=== PATIENT | female | born 1930 | race Caucasian/White ===

== ENCOUNTER 2018-09-28 12:32 | Inpatient (IN) | payer MEDICARE ==
--- NOTE | 2018-09-28 13:10 | CT ---
CT BRAIN NONCONTRAST: DATE: 09/28/2018 HISTORY: 88-year-old female with altered mental status FINDINGS: There is no evidence of acute intra-axial or extra-axial hemorrhage. There is no midline shift or any other mass effect. There is no extra-axial fluid collection. There is no evidence of obstructive hydrocephalus. Calvarium is intact. There is diffuse brain parenchymal volume loss. There are low att enuation areas in the white matter. These are nonspecific, but in a patient of this age, they are probably chronic ischemic white matter changes due to microvascular atherosclerosis. IMPRESSION: 1) No acute intracranial findings. 2) involutional changes and chronic ischemic white matter changes.
--- NOTE | 2018-09-28 13:11 | RAD ---
RADIOGRAPH CHEST 1 VIEW: DATE: 09/28/2018 HISTORY: 88-year-old female with altered mental status Dr. Fisher notified Dr. Fuller of the emergency Department of the finding and recommendation. FINDINGS: There are no airspace densities, pulmonary edema, pneumothorax, or cardiomegaly. The lateral costophr enic angles are sharp. There is a moderate sized left hilar or perihilar opacity with irregular margins, representing a change compared to prior studies. IMPRESSION: 1. Left hilar or perihilar mass suspicious for lung cancer. Recommend further evaluation with CT of t he chest (preferably with IV contrast unless contraindicated). 2. No acute cardiopulmonary findings.
[2018-09-28 13:29] LABS: #Eosinphils 0.2 thou/uL (0.0-0.7); #Lymphocytes 1.2 thou/uL (1.20-3.40); #Monocytes 0.3 thou/uL (0.11-0.59); #Neutrophils 7.5 thou/uL (1.40-6.50); %Basophils 0.4 % (0.0-1.0); %Lymphocytes 12.6 % (21.0-51.0); %Monocytes 3.7 % (0.0-10.0); %Neutrophils 81.3 % (42.0-75.0); Hemoglobin 15.2 g/dL (12.0-16.0); Mean Corpuscular HGB CONC 31.9 g/dL (32.0-36.0); Mean Corpuscular Hemoglobin 35.8 pg (27.0-31.0); Mean Platelet Volume 7.6 fL (7.4-10.4); Platelet Count 357 thou/uL (130-400); RBC Distribution Width 13.9 % (11.5-14.5); Red Blood Cell (RBC) Count 4.25 mill/uL (4.20-5.40); White Blood Cell (WBC) Count 9.2 thou/uL (4.8-10.8)
[2018-09-28 13:33] LABS: Prothrombin Time 13.5 SEC (12.0-14.7)
[2018-09-28 13:46] LABS: Hypochromia SLIGHT = 6-15 cells (100X) (0-5/hpf); MDiff Complete? YES; Macrocytosis MODERATE=16-30 cells (100X) (0-5/hpf); Platelet Morphology Comment Appears Adequate; Polychromasia SLIGHT = 2-3 cells (100X) (0-2/hpf)
[2018-09-28 14:08] LABS: ALT (SGPT) 8 U/L (8-55); AST (SGOT) 13 U/L (5-34); Albumin 4.1 g/dL (3.4-4.8); Alcohol Less than 10 mg/dL (Less than 10); Alkaline Phosphatase 75 U/L (40-150); Anion Gap 12 mmol/L (10-20); BUN (Urea Nitrogen) 20 mg/dL (9.8-20.1); Bilirubin, Total 0.4 mg/dL (0.2-1.2); Calc. Creatinine Clearance 0 mL/min (70-130); Calcium 9.7 mg/dL (7.8-10.44); Carbon Dioxide 27 mmol/L (23-31); Chloride 102 mmol/L (98-107); Estimated GFR-MDRD 69; Globulin 2.7 g/dL (2.4-3.5); Glucose 169 mg/dL (83-110); Potassium 4.4 mmol/L (3.5-5.1); Protein, Total 6.8 g/dL (6.0-8.3); Salicylate Less than 8.0 mg/dL (15.0-30.0); Sodium 137 mmol/L (136-145)
[2018-09-28 14:44] LABS: Bilirubin Negative (Negative); Blood, Urine Negative (Negative); Clarity CLEAR (Clear); Glucose, Urine (Dipstick) Negative (Negative); Leukocyte Negative (Negative); Nitrite Negative (Negative); Protein, Urine (Dipstick) Negative (Neg-Trace); Specific Gravity, Urine 1.013 (1.002-1.036); Urobilinogen 0.2 mg/dL (0.2-1.0); pH, Urine 5.5 (5.0-9.0)
[2018-09-28 14:54] LABS: Amphetamine Not Detected (NotDetected); Barbiturates Screen Not Detected (NotDetected); Benzodiazepine Screen Detected (NotDetected); Cocaine Metabolite Screen Not Detected (NotDetected); Medtox Control Line Valid? VALID (VALID); Medtox Reader # READER 4; Methadone Not Detected (NotDetected); Methamphetamine Not Detected (NotDetected); Opiate Screen Not Detected (NotDetected); Oxycodone Screen Not Detected (NotDetected); Phencyclidine (PCP) Not Detected (NotDetected); THC/Cannabinoid Screen Not Detected (NotDetected); Tricyclic Screen Not Detected (NotDetected)
[2018-09-28 15:27] LABS: Actual Bicarbonate (HCO3a) 27.1 mEq/L (22-28); Analyzer IN Cardio ER; Base Excess (BEa) 2.2 mEq/L (-2.0 to +3.0); CO2 Tension 43.1 mmHg (35.0-45.0); Calcium, Ionized 1.22 mmol/L (1.12-1.30); Carboxyhemoglobin (COHb) 3.3 gm% (0.0-3.0); Hemoglobin (Hb) 16.4 g/dL (12.0-16.0); O2 Tension (PaO2) 66.8 mmHg (> 60.0); pH, Arterial 7.42 (7.35-7.45)
[2018-09-28 15:28] LABS: ALV-art Gradient 29.055 (0-20); Puncture Site RRA
--- NOTE | 2018-09-28 15:52 | CT ---
CT CHEST WITHOUT CONTRAST: Multiple axial tomograms are obtained through the chest without IV enhancement. INDICATION: Abnormal chest x-ray. Chest x-ray described a left perihilar mass lesion. FINDINGS: Chest CT does confirm a mass in the posterior left mid lung which is pleural-based. This mass measur es 4.8 cm maximum dimension in the coronal plane. It abuts the descending aorta and also abuts the p osterior hilar region. There are chronic lung parenchymal changes. There is cardiomegaly and mild vascular congestion. The re is early honeycombing in both posterior lung bases. No effusion. Nonspecific mediastinal lymph n odes. Images through the upper abdomen show evidence of splenomegaly. Degenerative changes in the spine. IMPRESSION: 1. Mass posterior left lung which his pleural-based and abuts the descending aorta and posterior hil ar structures. 2. Chronic lung parenchymal changes as described. 3. Splenomegaly. POS: OFF
[2018-09-28] MEDS ORDERED: Ondansetron PF 4 MG/2 ML Vial IVP PRN (19:38)
[2018-09-28] MEDS ORDERED: Acetaminophen 325 MG TAB PO PRN (19:38)
[2018-09-28] MEDS ORDERED: Ondansetron ODT 4 MG TAB SL PRN (19:38)
[2018-09-28] MEDS ORDERED: PROVENTIL INHALER 6.7 G (200 INHALATIONS) INH PRN (22:55)
[2018-09-28] MEDS ORDERED: Dextrose 5% in Water 1,000 ML IV PRN (22:58)
[2018-09-28] MEDS ORDERED: Dextrose 50% Abboject 50 ML SYRINGE SLOW IVP PRN (22:58)
[2018-09-28] MEDS ORDERED: ALPRAZolam 0.25 MG TAB PO SCH (23:15)
[2018-09-28] MEDS ORDERED: Mirtazapine 15 MG TAB PO SCH (23:15)
[2018-09-28] MEDS: Nicotine 21 MG PATCH TD SCH (23:30)
[2018-09-29 01:22] VITALS: BMI 22.4
[2018-09-29 08:00] LABS: #Basophils 0.1 thou/uL (0.0-0.2); #Eosinphils 0.1 thou/uL (0.0-0.7); #Lymphocytes 1.4 thou/uL (1.20-3.40); #Monocytes 0.6 thou/uL (0.11-0.59); #Neutrophils 7.1 thou/uL (1.40-6.50); %Basophils 0.8 % (0.0-1.0); %Eosinophils 1.3 % (0.0-10.0); %Lymphocytes 15.1 % (21.0-51.0); %Monocytes 6.4 % (0.0-10.0); %Neutrophils 76.4 % (42.0-75.0); Hemoglobin 15.5 g/dL (12.0-16.0); Mean Corpuscular HGB CONC 32.4 g/dL (32.0-36.0); Mean Corpuscular Hemoglobin 36.1 pg (27.0-31.0); Mean Platelet Volume 7.7 fL (7.4-10.4); Platelet Count 344 thou/uL (130-400); RBC Distribution Width 13.8 % (11.5-14.5); Red Blood Cell (RBC) Count 4.29 mill/uL (4.20-5.40); White Blood Cell (WBC) Count 9.3 thou/uL (4.8-10.8)
[2018-09-29 08:21] LABS: Anion Gap 12 mmol/L (10-20); BUN (Urea Nitrogen) 20 mg/dL (9.8-20.1); Calc. Creatinine Clearance 46 mL/min (70-130); Calcium 9.9 mg/dL (7.8-10.44); Carbon Dioxide 28 mmol/L (23-31); Chloride 105 mmol/L (98-107); Estimated GFR-MDRD 77; Glucose 151 mg/dL (83-110); Sodium 141 mmol/L (136-145)
[2018-09-29] MEDS ORDERED: Non-Formulary Item 1 EACH (Insulin Detemir [Levemir] 10 UNIT) SQ SCH (09:00)
[2018-09-29] MEDS: Hydroxyurea 500 MG CAP PO SCH (09:11)
[2018-09-29] MEDS: Insulin Glargine 10 UNITS in Pre-Filled Syringe 1 EACH SC SCH (09:11)
[2018-09-29] MEDS: Aspirin 81 mg Enteric Coated Tablet PO SCH (09:11)
[2018-09-29] MEDS: Atorvastatin Calcium 20 MG TAB PO SCH (09:12)
[2018-09-29] MEDS: Atenolol 25 MG TAB PO SCH (09:13)
[2018-09-29] MEDS: Famotidine 20 MG TAB PO SCH ×2 (09:13→21:56)
--- NOTE | 2018-09-29 10:01 | HP ---
PRIMARY CARE PHYSICIAN: CHIEF COMPLAINT: Increased mechanical fall and generalized weakness. HISTORY OF PRESENT ILLNESS: Ms. 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 She states that her PCP started her on trazodone at bedtime along with increase in her daily Klonopin and since then she has noticed that she is felt quite drowsy and weak during the day, which has caused her to have several mechanical falls, she states the last one was earlier this morning where she was at home. She had fallen on the floor. She had denied hitting her head and she had literally crawled to her chair and helped herself up to the chair. She states that family and her were quite concerned with this; therefore she had wanted to be seen in and find out what the cause is. She had denied any fever, chills, any headache, blurred vision. She denied any chest pain, palpitations, shortness of breath, abdominal pain, nausea, vomiting. She denied any change with her stool. She had denied any frequent weight loss and has actually gained about 15 pounds since starting on insulin for her underlying diabetes. During her initial workup, a CT brain without contrast was unremarkable; however did show some chronic ischemic white matter changes. A portable chest x-ray showed a left hilar or perihilar mass suspicious of lung cancer and had recommended further evaluation with a CT of chest. Therefore, CTA of chest without contrast was performed due to patient declining IV contrast at that time and a mass in posterior left lung, which is pleural-based and abuts the descending aorta and posterior hilar structures. It was seen along with chronic lung parenchymal changes. The patient states she sees Dr. 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 Ag was then consulted per ED staff for her new lung mass. It was at that time, it was determined the patient be admitted under observation, Dr. Ag consulted and patient be monitored for her increased falls and her generalized weakness, PT and OT services were consulted and will likely work with patient in the morning. REVIEW OF SYSTEMS: All other systems reviewed and found to be negative unless mentioned in HPI. PAST MEDICAL HISTORY: Significant for myelofibrosis, thrombocytopenia, osteoarthritis, Guillain-[place] syndrome, hypertension and hyperlipidemia. PAST SURGICAL HISTORY: Hernia repair, left breast cyst removal, appendectomy, cholecystectomy, tonsillectomy, and hemorrhoidectomy. PSYCHIATRIC HISTORY: Includes depression and paranoia. SOCIAL HISTORY: The patient denies alcohol or any illicit drug use; however she states that she smokes about a pack to two packs of cigarettes per day and she has been smoking since she was around 15 years old. KNOWN ALLERGIES: Cephalosporins, Cipro, Declomycin, Furacin, gentamicin, Innovar, iodine, Librax, azithromycin, sulfa, Prozac, Phenergan, penicillins, Visicol, Ultracef. CURRENT HOME MEDICATIONS: 1. Clonazepam 1 mg p.o. daily and 0.5 mg p.o. at bedtime. 2. Trazodone 50 mg p.o. at bedtime. 3. Alprazolam 0.25 p.o. at bedtime. 4. Remeron 15 mg p.o. at bedtime. 5. Atenolol 25 mg p.o. daily. 6. NovoLog FlexPen 10 units subcu t.i.d. with meals. 7. Hydroxyurea 50 mg p.o. daily. 8. Atorvastatin 20 mg p.o. daily. 9. Albuterol sulfate 90 mcg one inhalation q.6 hours p.r.n. shortness of breath or wheezing. 10. Insulin Levemir 10 units subcu daily. 11. Aspirin 81 mg daily. PHYSICAL EXAMINATION: VITAL SIGNS: BP 117/57, pulse 76, respirations 16, temperature 98.4 degrees Fahrenheit, O2 saturations 95% on room air. GENERAL: The patient is awake, alert, and oriented x3. She is currently lying comfortably in bed, in no acute distress. Her daughter is at bedside. HEENT: Atraumatic, normocephalic. Pupils are round and reactive to light. Extraocular muscles intact. Moist mucous membranes noted. NECK: Soft, supple. Trachea midline. CARDIOVASCULAR: Positive S1 and S2. Regular rate and rhythm. No murmur auscultated. RESPIRATORY: Clear to auscultation bilaterally. No wheezes, rales; however, some mild diminished breath sounds at the bases. ABDOMEN: Soft, nontender. Bowel sounds present. MUSCULOSKELETAL: Strength 5+ bilaterally in upper and lower extremities. Moves all extremities equal. Pedal and radial pulses palpable 2+ bilaterally. No edema noted. NEUROLOGIC: Cranial nerves 2 through 12 grossly intact. No focal deficits noted. Speech intact and normal. Gait not assessed. The patient is slightly hard of hearing. SKIN: Warm, dry, and intact. No rashes. No ulceration noted. PSYCHIATRIC: Good mood and affect. LABORATORY DATA: WBC 9.2, RBC 4.25, hemoglobin 15.2, platelet 357. Sodium 137, potassium 4.4, bicarb 27, anion gap 12, BUN 20, creatinine 0.79, estimated GFR 69, glucose 156. Lactic acid 1.4. Troponin less than 0.010. Urinalysis unremarkable. Drug screen detected benzodiazepine, plasma alcohol less than 10. DIAGNOSTIC IMAGING: CT brain without contrast showed no acute intracranial findings; however, did show some chronic ischemic white matter changes. A portable chest x-ray did show a left hilar or perihilar mass suspicious for lung cancer, otherwise no acute cardiopulmonary findings. CT of chest without contrast due to patient refusing contrast showed a mass in posterior left lung, which was pleural-based and abuts the descending aorta and posterior hilar structures with chronic lung parenchymal changes. ASSESSMENT/PLAN: 1. New lung mass, likely lung cancer, Dr. Ag is consulted and pending at this time. The patient has a longstanding history of smoking. She will be placed on nicotine patch and smoking cessation was strongly recommended. However, patient states that she will not quit smoking. 2. Altered mental status, generalized weakness and increased mechanical fall, this is likely secondary to polypharmacy. The patient was taking many different benzodiazepines and medications for her underlying depression and she was recently started on trazodone and her Klonopin was increased, which was likely a little too much for her. At this time, she will be restarted on her home regimen; however, trazodone and her Klonopin will be held and she will be further monitored for any additional changes. 3. History of hypertension, currently stable at this time. She will be resumed on her home regimen. 4. Hyperlipidemia. Continue on home statin. 5. Deep venous thrombosis and gastrointestinal prophylaxis, patient will be continued on sequential compression devices. However, further anticoagulation will be held at this time due to patient's increased risk of fall, and she will be continued on proton pump inhibitor during hospital stay. 6. Code status, DNAR. 7. The patient's surrogate decision maker is her son, Anthony Min. DISPOSITION: The patient will be restarted on her home medications as described. However, her nighttime dose of Klonopin and trazodone will be held and she will be further monitored for any additional symptoms, PT and OT will be ordered for her increased generalized weakness to assist in her disposition. Due to new lung mass, Dr. Ag was consulted; however, patient states that she wants to move forward with conservative measures at this time and does not want any invasive treatment. Job ID: [id number]
[2018-09-29] MEDS ORDERED: Hydroxyurea 500 MG CAP PO SCH (12:00)
--- NOTE | 2018-09-29 12:49 | PRG ---
DATE OF SERVICE: 09/29/2018 SUBJECTIVE: Ms. Min is a pleasant 88-year-old female with past medical history significant for chronic tobacco abuse, myelofibrosis, and thrombocytopenia followed by Dr. Ag, diabetes mellitus, and hypertension, who presented to the hospital with complaints of mild confusion along with frequent falls. The patient has been diagnosed with a new pleural-based lung mass. Her Klonopin and trazodone were held, and she is back to baseline regarding her confusion. She is alert and oriented x3. She states that she slept very well. She has no complaints of chest pain, shortness of breath, nausea, or vomiting. Dr. Ag saw the patient this morning in consultation. The patient has no complaints at this time. OBJECTIVE: VITAL SIGNS: Blood pressure is 140/70, O2 saturation is 92% on room air, respirations are 18, pulse is 85. The patient is afebrile. GENERAL: This is a thin elderly female, resting comfortably in bed, in no acute distress. HEENT: Head is atraumatic and normocephalic. Mucous membranes are moist. Extraocular movements intact. NECK: Supple. No lymphadenopathy. No carotid bruits. No JVD. CV: S1, S2, harsh systolic murmur, grade 2/6 consistent with , occasional ectopy. LUNGS: Regular respiratory rate and pattern, she has occasional expiratory rhonchi and occasional expiratory wheeze. ABDOMEN: Positive bowel sounds. Soft, nontender. EXTREMITIES: No edema. Lower extremities are warm and well-perfused. SKIN: Warm and dry. No apparent rashes or discolorations. NEUROLOGIC: Cranial nerves 2 through 12 are intact. The patient is alert and oriented x3. She is nonfocal. LABORATORY DATA: White blood cell count 9.3, hemoglobin 15.5, hematocrit 47.8, MCV 111, platelets 344. Sodium 141, potassium 4.0, chloride 105, BUN 20, creatinine 0.72, estimated GFR 77. Her urinalysis was negative. ASSESSMENT: 1. New pleural-based left lung mass, measuring 4.8 cm in diameter. 2. Altered mental status in the setting of polypharmacy with increased Klonopin and trazodone doses, resolved. 3. Chronic tobacco abuse. 4. Myelofibrosis. 5. Type 2 diabetes mellitus. 6. Chronic obstructive pulmonary disease. 7. Generalized weakness and falls, this is likely secondary to underlying malignancy. PLAN: Dr. Ag has seen the patient and ordered CT of the abdomen with and without contrast along with a bone scan. At this point, the patient states that she is not interested in invasive therapies or treatment, and at this point, does not seem to be willing to proceed with biopsy of the lung, if that is what is next recommended. In any case, she has agreed to the scans ordered by Dr. Ag. We will continue her sliding-scale insulin and home medication doses of atenolol and statin. We will continue aspirin. We will continue to hold Klonopin and trazodone for now, the patient is doing well on p.r.n. Xanax. Further recommendations based on hospital course. Job ID: [id number]
--- NOTE | 2018-09-29 13:17 | CON ---
DATE OF CONSULTATION: 09/29/2018 HISTORY OF PRESENT ILLNESS: Ms. Min is an 88-year-old female, well known to me, with myelofibrosis and associated leukocytosis with anemia. She presented to the emergency room with complaints of a sinking spell and feeling somewhat dizzy. She has had some difficulty over the last couple of months with increasing fatigue and intermittent weight loss. In the emergency room, a brain CT was done looking for signs of possible stroke, but there were no acute intracranial findings. She also had a chest x-ray and subsequently a chest CT, which showed a posterior left lung pleural base mass concerning for malignancy. Splenomegaly was also noted. She does complain of some shortness of breath, which is chronic. She has had increasing cough with sputum production, but no hemoptysis. She has lost some weight, although it is difficult for her to quantify. She is feeling much better with less dizziness since coming in. She denies fevers, chills, or night sweats. She denies significant bone pain, but she does have joint pain. PAST MEDICAL HISTORY: 1. Myelofibrosis. 2. Hypertension. 3. Hypercholesterolemia. 4. Splenomegaly associated with myelofibrosis. CURRENT MEDICATIONS: 1. Proventil p.r.n. 2. Xanax 0.25 mg p.o. at bedtime p.r.n. 3. Aspirin 81 mg p.o. daily. 4. Atenolol 25 mg p.o. daily. 5. Lipitor 20 mg p.o. daily. 6. Pepcid 20 mg p.o. b.i.d. 7. Hydroxyurea 500 mg p.o. daily, titrated to maintain blood counts. 8. Insulin lispro sliding scale. 9. Remeron 15 mg p.o. at bedtime. 10. NicoDerm patch. ALLERGIES: 1. AZITHROMYCIN. 2. CEFUROXIME. 3. KEFLEX. 4. CEPHALOSPORINS. 5. CODEINE. 6. DEMECLOCYCLINE. 7. ERYTHROMYCIN. 8. GENTAMICIN. 9. IODINE. 10. HYALURONIC ACID. 11. LINCOMYCIN. 12. MENTHOL. 13. NITROFURAZONE. 14. PENICILLIN. 15. PHENOL. 16. PROMETHAZINE. 17. SULFA. 18. TETRACYCLINE. SOCIAL HISTORY: She lives independently currently, but they are looking for an assisted living for her. Her son is an network systems administrator in healthcare in [facility]. She has a daughter who is quite supportive in here. She does have chronic tobacco use and currently smokes, but does not admit to any alcohol use. REVIEW OF SYSTEMS: Otherwise, 10-point review of systems is negative. FAMILY HISTORY: Noncontributory. PHYSICAL EXAMINATION: VITAL SIGNS: Temperature 97.4, pulse 68, O2 saturation 92% on room air, respirations 16, and blood pressure 136/63. GENERAL: She is alert, awake, and oriented x3, but is hard of hearing, in no acute distress, eating breakfast. HEENT: Extraocular muscles are intact. Sclerae are anicteric. NECK: Supple without lymphadenopathy. CARDIOVASCULAR: Regular rate and rhythm with a 3/6 systolic murmur. LUNGS: Decreased breath sounds throughout consistent with COPD. ABDOMEN: Hypoactive bowel sounds, soft, and tender in the left upper quadrant with a palpable spleen. EXTREMITIES: Trace edema bilaterally. LABORATORY DATA: White blood cell count 9.3, hemoglobin 15.5, and platelets 344. Sodium 141, potassium 4.0, chloride 105, CO2 of 28, BUN 20, creatinine 0.7, glucose 151, and calcium 9.9. Liver function tests are normal. ASSESSMENT: Ms. Min is an 88-year-old female with, 1. Myelofibrosis, counts controlled on hydroxyurea. 2. Presyncope and dizziness, currently resolved. 3. Left lung mass. PLAN: 1. I discussed the lung mass with the patient and she is absolutely adamant that she does not want to biopsy and she does not want any treatment even if it is cancer. I have recommended full staging with imaging of the abdomen and pelvis and a bone scan to make sure that she does not have signs of metastatic disease. If she does, then treatment at discharge might be different including hospice care. 2. She also states she would like to be a DNR and this has already been placed. 3. Continue hydroxyurea. 4. I have recommended Pharmacy Technician Trainee consult for considering placement in assisted living and a Palliative Care consult, which she may need as an outpatient. Job ID: [id number]
--- NOTE | 2018-09-29 14:33 | CT ---
CT chest noncontrast HISTORY: Lung mass. Evaluate for metastases. Iodine allergy FINDINGS: Atelectasis at the left base and other lung base findings are better detailed on recent ded icated CT chest. Lack of contrast limits evaluation of the soft tissues. Oral contrast was administered. No evidence o f bowel obstruction. Spleen measures up to 14.4 cm. Calcified granulomata within the liver are consistent with healed granulomatous disease. Subtle hyperdensity at the superior pole left kidney ma y represent a hyperdense intraparenchymal cyst or pyramidal calcification. No free fluid. Prominent calcification throughout the arterial structures. Circumferential wall thickening of the gastric fund us, up to 2.2 cm. Gallbladder is surgically absent. The pelvis was not imaged. IMPRESSION: Circumferential wall thickening of the gastric fundus. Focal mass not reliably demonstrat ed. Clinical correlation regarding other signs and symptoms of gastritis is required. Consider endoscopy. Prominent atherosclerosis. Iodine allergy. No reliable CT evidence of intra-abdominal metastases.
--- NOTE | 2018-09-29 14:41 | NM ---
Radionucleotide bone scan HISTORY: Lung mass. Evaluate for metastases. Initial staging. FINDINGS: Heterogeneous uptake about each shoulder, wrist, knee, ankle and foot. Heterogeneous uptake throughout the spine with the appearance of degenerative changes. Urine contamination artifact about the pelvis. Prominent right convex rotatory scoliotic curvature of the thoracolumbar junction and lumbar spine. No focal osseous abnormalities to suggest metastatic disease. IMPRESSION: Prominent arthritic changes. No reliable scintigraphic evidence of osseous metastasis.
[2018-09-29] MEDS ORDERED: predniSONE 50 MG TAB PO SCH (20:00)
[2018-09-29] MEDS: Mirtazapine 15 MG TAB PO SCH (21:55)
[2018-09-29] MEDS: ALPRAZolam 0.25 MG TAB PO SCH (21:55)
[2018-09-29] MEDS: Nicotine 21 MG PATCH TD SCH (21:56)
[2018-09-30] MEDS ORDERED: diphenhydrAMINE 50 MG CAP PO SCH (08:00)
[2018-09-30] MEDS: Atenolol 25 MG TAB PO SCH (08:50)
[2018-09-30] MEDS: Hydroxyurea 500 MG CAP PO SCH (08:50)
[2018-09-30] MEDS: Atorvastatin Calcium 20 MG TAB PO SCH (08:50)
[2018-09-30] MEDS: Famotidine 20 MG TAB PO SCH ×2 (08:50→20:13)
[2018-09-30] MEDS: Insulin Glargine 10 UNITS in Pre-Filled Syringe 1 EACH SC SCH (08:51)
[2018-09-30] MEDS: Aspirin 81 mg Enteric Coated Tablet PO SCH (08:51)
[2018-09-30] MEDS: HumaLOG 300 UNITS/3 ML VIAL SC PRN ×2 (12:27→20:19)
--- NOTE | 2018-09-30 19:51 | PRG ---
DATE OF SERVICE: 09/30/2018 SUBJECTIVE: Ms. Min is a pleasant 88-year-old female with past medical history significant for chronic tobacco abuse, myelofibrosis, followed by Dr. Ag, diabetes mellitus, and hypertension, who presented to the hospital with complaints of mild confusion along with frequent falls. The patient has been diagnosed with a new pleural-based lung mass. Her initial confusion and altered mental status have completely resolved. She has no complaints to me at this time. She denies any chest pain or shortness of breath. Her appetite remains good. She has no shortness of breath, nausea, or vomiting. She has ambulated with physical therapy. OBJECTIVE: VITAL SIGNS: Blood pressure 125/63, O2 saturation is 97% on room air, respirations 18, pulse 78, and temperature is 97.4. GENERAL: This is a thin, elderly female, resting comfortably in bed, in no acute distress. HEENT: Head is atraumatic and normocephalic. Mucous membranes are moist. Extraocular movements intact. NECK: Supple. No lymphadenopathy. No carotid bruits. No JVD. CV: S1 and S2. Harsh systolic murmur grade 2/6 consistent with , with occasional ectopy. LUNGS: Regular respiratory rate and pattern. Very faint occasional expiratory wheeze. No rhonchi noted. Good fascicular breath sounds. ABDOMEN: Positive bowel sounds. Soft and nontender. EXTREMITIES: No edema. Lower extremities are warm and well perfused. SKIN: Warm and dry. No apparent rashes or discolorations. NEUROLOGIC: Cranial nerves 2 through 12 are intact. The patient is alert and oriented. She is nonfocal. LABORATORY DATA: No new laboratory data. Please refer to most recent labs dictated on September 29. ASSESSMENT: 1. New pleural-based left lung mass, measuring 4.8 cm in diameter, no metastasis evident per nuclear bone scan or CT of the abdomen and pelvis. 2. Altered mental status at presentation in the setting of polypharmacy secondary to increased Klonopin and trazodone doses, resolved. 3. Chronic tobacco abuse. 4. Myelofibrosis. 5. Type 2 diabetes mellitus. 6. Chronic obstructive pulmonary disease. 7. Generalized weakness and falls. PLAN: The patient has been seen in consultation with Dr. Ag, and at this point, the patient is declining any further biopsy, workup, and treatment of her likely newly diagnosed malignancy. Physical Therapy is recommending [facility] versus home with 24-hour care and continued PT and OT. At this time, Case Management has been consulted and we are awaiting placement. We will continue her sliding-scale insulin and home medications of atenolol and statin. We will continue aspirin. Given her risk factors for DVT, we will add pharmacologic DVT prophylaxis as well. The care of this patient has been discussed with Dr. Red, who agrees with the above. Job ID: [id number]
[2018-09-30] MEDS: Nicotine 21 MG PATCH TD SCH (20:11)
[2018-09-30] MEDS: ALPRAZolam 0.25 MG TAB PO SCH (20:13)
[2018-09-30] MEDS: Mirtazapine 15 MG TAB PO SCH (20:14)
[2018-09-30] MEDS: Enoxaparin Sodium 40 MG/0.4 ML SYRINGE SC SCH (20:14)
[2018-10-01] MEDS: Acetaminophen 325 MG TAB PO PRN (02:47)
[2018-10-01] MEDS: Insulin Glargine 10 UNITS in Pre-Filled Syringe 1 EACH SC SCH (09:03)
[2018-10-01] MEDS: Hydroxyurea 500 MG CAP PO SCH (09:04)
[2018-10-01] MEDS: Atenolol 25 MG TAB PO SCH (09:04)
[2018-10-01] MEDS: Aspirin 81 mg Enteric Coated Tablet PO SCH (09:04)
[2018-10-01] MEDS: Atorvastatin Calcium 20 MG TAB PO SCH (09:04)
[2018-10-01] MEDS: Famotidine 20 MG TAB PO SCH ×2 (09:04→21:50)
[2018-10-01] MEDS: HumaLOG 300 UNITS/3 ML VIAL SC PRN ×3 (11:57→21:52)
--- NOTE | 2018-10-01 18:07 | PRG ---
DATE OF SERVICE: 10/01/2018 SUBJECTIVE: Ms. Min is a very pleasant 88-year-old female with past medical history significant for hypertension, diabetes mellitus, chronic tobacco abuse, and myelofibrosis, who originally presented to the emergency department with complaints of mild confusion and frequent falls. The patient has since been diagnosed with a pleural-based lung mass. Her initial complaints have resolved, after appropriate medication adjustments. Ms. Min denies any physical complaints at this time. She denies any chest pain, shortness of breath, nausea, or vomiting. Her appetite remains very good. She does complain of anxiety and panic attacks, which have been a long time issue for her. She has ambulated with PT today, no other complaints at this time. OBJECTIVE: VITAL SIGNS: Blood pressure 107/61, pulse 74, O2 saturation 94% on room air, temperature 98.6. GENERAL: The patient is an elderly, thin female, resting comfortably in bed, in no acute distress. HEENT: Head, atraumatic and normocephalic. Mucous membranes are moist. NECK: Supple. No lymphadenopathy. No JVD. CV: S1 and S2. Regular rate and rhythm. Harsh systolic murmur, grade 2/6, consistent with . LUNGS: Regular respiratory rate and pattern, overall clear to auscultation. ABDOMEN: Soft. Positive bowel sounds. No masses. Nontender. EXTREMITIES: No edema. +2 DP pulses bilaterally. SKIN: Warm and dry. No rashes. NEURO: Cranial nerves 2 through 12 are grossly intact. The patient is nonfocal. LABORATORY DATA: No new laboratory data, please refer to the most recent labs dictated on September 29. ASSESSMENT: 1. New pleural-based left lung mass measuring 4.8 cm in diameter, no metastasis evident per nuclear bone scan or CT of the abdomen and pelvis. 2. Generalized debility and weakness with frequent falls. 3. Altered mental status at presentation in the setting of polypharmacy secondary to increased Klonopin and trazodone doses, resolved. 4. Myelofibrosis. 5. Type 2 diabetes mellitus. 6. Chronic obstructive pulmonary disease. 7. Hypertension. PLAN: At this time, physical therapy does recommend [facility] for this patient, and currently, she is awaiting placement. Case Management is working diligently on this. I will continue sliding scale insulin and home medications of atenolol and statin. Continue DVT prophylaxis. At this time, I feel it is warranted to go ahead and add low dose anxiolytic to her regimen, and we will add Xanax 0.25 mg t.i.d. p.r.n. and monitor closely. The care of this patient has been discussed with Dr. Red, who agrees with the above. We will continue in-house physical therapy at this time. Job ID: [id number]
[2018-10-01] MEDS: Mirtazapine 15 MG TAB PO SCH (21:50)
[2018-10-01] MEDS: ALPRAZolam 0.25 MG TAB PO PRN (21:50)
[2018-10-01] MEDS: Enoxaparin Sodium 40 MG/0.4 ML SYRINGE SC SCH (21:51)
[2018-10-01] MEDS: Nicotine 21 MG PATCH TD SCH (21:52)
[2018-10-02] MEDS: HumaLOG 300 UNITS/3 ML VIAL SC PRN ×2 (06:30→18:25)
[2018-10-02] MEDS: Aspirin 81 mg Enteric Coated Tablet PO SCH (08:54)
[2018-10-02] MEDS: Insulin Glargine 10 UNITS in Pre-Filled Syringe 1 EACH SC SCH (08:54)
[2018-10-02] MEDS: Atorvastatin Calcium 20 MG TAB PO SCH (08:55)
[2018-10-02] MEDS: Atenolol 25 MG TAB PO SCH (08:55)
[2018-10-02] MEDS: Famotidine 20 MG TAB PO SCH ×2 (08:55→21:45)
[2018-10-02] MEDS: Hydroxyurea 500 MG CAP PO SCH (08:55)
[2018-10-02] MEDS: ALPRAZolam 0.25 MG TAB PO PRN ×2 (12:13→19:26)
[2018-10-02] MEDS ORDERED: Lorazepam 2 MG/ML VIAL SLOW IVP SCH (14:45)
[2018-10-02] MEDS ORDERED: Sterile Water 10 ML VIAL FS PRN (16:18)
[2018-10-02] MEDS ORDERED: Lorazepam 1 MG TAB PO SCH (16:30)
[2018-10-02] MEDS ORDERED: Ziprasidone 20 MG VIAL IM SCH (16:30)
[2018-10-02] MEDS ORDERED: Ziprasidone 20 MG VIAL IM PRN (19:02)
[2018-10-02 19:11] LABS: #Basophils 0.1 thou/uL (0.0-0.2); #Eosinphils 0.2 thou/uL (0.0-0.7); #Lymphocytes 1.4 thou/uL (1.20-3.40); #Monocytes 0.5 thou/uL (0.11-0.59); #Neutrophils 8.8 thou/uL (1.40-6.50); %Eosinophils 2.1 % (0.0-10.0); %Lymphocytes 12.8 % (21.0-51.0); %Monocytes 4.1 % (0.0-10.0); Hemoglobin 17.1 g/dL (12.0-16.0); Mean Corpuscular HGB CONC 33.5 g/dL (32.0-36.0); Mean Corpuscular Hemoglobin 37.4 pg (27.0-31.0); Mean Platelet Volume 7.7 fL (7.4-10.4); Platelet Count 401 thou/uL (130-400); Red Blood Cell (RBC) Count 4.56 mill/uL (4.20-5.40)
[2018-10-02 19:31] LABS: Anion Gap 16 mmol/L (10-20); BUN (Urea Nitrogen) 21 mg/dL (9.8-20.1); Calc. Creatinine Clearance 43 mL/min (70-130); Calcium 10.1 mg/dL (7.8-10.44); Carbon Dioxide 26 mmol/L (23-31); Chloride 102 mmol/L (98-107); Estimated GFR-MDRD 70; Glucose 167 mg/dL (83-110); Potassium 3.7 mmol/L (3.5-5.1); Sodium 140 mmol/L (136-145)
--- NOTE | 2018-10-02 20:03 | PRG ---
DATE OF SERVICE: 10/02/2018 SUBJECTIVE: Ms. Min is an 88-year-old female with past medical history significant for hypertension, diabetes, and chronic tobacco abuse along with myelofibrosis, followed by Dr. Ag, who presented to the emergency room initially with complaints of mild confusion and frequent falls. Her confusion and falls were secondary to polypharmacy and have resolved. The patient has been doing quite well until today when she began eliciting some combative behavior with nursing staff and family members. She is extremely emotionally upset regarding her diagnosis and prognosis, along with [facility]. She expresses wishes to go home. She is at this time not willing to be cooperative regarding fall precautions. She remains very agitated and angry. She denies any pain or shortness of breath. OBJECTIVE: VITAL SIGNS: Blood pressure 134/76, O2 saturation is 98% on room air, respirations 18, pulse 79, temperature 98.2. GENERAL: The patient is awake, alert, and oriented, appears extremely agitated and angry. CV: S1 and S2. Regular rate and rhythm. Positive systolic murmur grade 2/6. LUNGS: Regular respiratory rate and pattern. Overall clear to auscultation bilaterally. ABDOMEN: Positive bowel sounds. Soft and nontender. EXTREMITIES: No edema. SKIN: Warm and dry. No rashes. NEUROLOGIC: No focal deficits. LABORATORY DATA: No new laboratory data. ASSESSMENT: 1. Agitation and combative behavior, questionably secondary to adjustment disorder versus acute delirium. 2. New pleural-based left lung mass, measuring 4.8 cm in diameter, no metastasis evident per nuclear bone scan or CT of the abdomen and pelvis. 3. Generalized debility and weakness with frequent falls. 4. Myelofibrosis. 5. Type 2 diabetes mellitus. 6. Chronic obstructive pulmonary disease. 7. Hypertension. PLAN: At this time, we will obtain CBC, BMP, and UA. We will provide sedation for the patient. If she remains a danger to herself and others, may have to consider soft restraints. Further recommendations based on lab work and wishes of the patient and her family regarding possible treatment for presumed lung cancer and placement. The care of this patient has been discussed at length with Dr. Infante, who agrees with the above. Job ID: [id number]
[2018-10-02] MEDS: Enoxaparin Sodium 40 MG/0.4 ML SYRINGE SC SCH (21:44)
[2018-10-02] MEDS: Mirtazapine 15 MG TAB PO SCH (21:45)
[2018-10-02] MEDS: Nicotine 21 MG PATCH TD SCH (21:48)
[2018-10-02] MEDS ORDERED: diphenhydrAMINE 50 MG/ML VIAL IVP PRN (22:13)
[2018-10-02] MEDS ORDERED: Lorazepam 2 MG/ML VIAL SLOW IVP PRN (22:14)
[2018-10-03] MEDS: Venlafaxine HCl 37.5 MG TAB PO SCH (08:03)
[2018-10-03] MEDS: Aspirin 81 mg Enteric Coated Tablet PO SCH (08:03)
[2018-10-03] MEDS: Hydroxyurea 500 MG CAP PO SCH (08:03)
[2018-10-03] MEDS: Atorvastatin Calcium 20 MG TAB PO SCH (08:03)
[2018-10-03] MEDS: Famotidine 20 MG TAB PO SCH ×2 (08:03→21:08)
[2018-10-03] MEDS: Atenolol 25 MG TAB PO SCH (08:03)
[2018-10-03] MEDS: Insulin Glargine 10 UNITS in Pre-Filled Syringe 1 EACH SC SCH (10:01)
[2018-10-03] MEDS: HumaLOG 300 UNITS/3 ML VIAL SC PRN ×3 (10:02→21:06)
[2018-10-03 14:26] LABS: Clarity Clear (Clear); Leukocyte Negative (Negative); Specific Gravity, Urine 1.015 (1.005-1.030); pH, Urine 6.5 (5.0-9.0)
[2018-10-03 14:27] LABS: Bilirubin Negative (Negative); Blood, Urine Negative (Negative); Glucose, Urine (Dipstick) Negative (Negative); Nitrite Negative (Negative); Protein, Urine (Dipstick) Negative (Neg-Trace); Urobilinogen 0.2 mg/dL (0.2-1.0)
[2018-10-03 14:29] LABS: Bacteria/HPF None Seen HPF (None Seen); Hyaline Casts/LPF NONE SEEN LPF (0-3 Hyaline); RBC/HPF 0-3 HPF (0-3); WBC/HPF 0-3 HPF (0-3)
[2018-10-03 14:30] LABS: Urine Culture Reflex No No
--- NOTE | 2018-10-03 19:40 | PRG ---
DATE OF SERVICE: 10/03/2018 SUBJECTIVE: Ms. Min is an 88-year-old female with past medical history significant for myelofibrosis, followed by Dr. Ag, hypertension, tobacco abuse, and diabetes, who was initially admitted to this facility with mild confusion and altered mental status secondary to polypharmacy in the setting of increased trazodone and Klonopin doses. This morning, the patient is awake, alert, and oriented, very calm, and resting comfortably in her bed. Yesterday, she had a fairly prolonged episode of aggressive behavior, agitation, requiring sedation and brief time in soft restraints. According to family members, the patient remained agitated overnight along with some apparent hallucinations, which have all resolved this morning. As mentioned at the time of my interview, she is alert and oriented. She has no complaints. She denies any chest pain or shortness of breath. She denies any nausea or vomiting. She has eaten 100% of her breakfast and lunch. OBJECTIVE: VITAL SIGNS: Blood pressure is 148/66, pulse is 85, O2 saturation is 94% on room air, respirations are 18. GENERAL: The patient is a very thin, elderly female, resting comfortably in bed. HEENT: Head is atraumatic and normocephalic. Eye movements intact. Mucous membranes are moist. NECK: No lymphadenopathy. Trachea is midline. CV: S1 and S2. Harsh systolic murmur grade 3/6. LUNGS: Regular respiratory rate and pattern, occasional anterior expiratory wheeze noted, overall clear. ABDOMEN: Soft, positive bowel sounds, nontender. EXTREMITIES: No edema. Both lower extremities are warm and well perfused. SKIN: Warm and dry. No rashes. LABORATORY DATA: Her urinalysis is negative for acute infection. White blood cell count 11, hemoglobin 17, hematocrit 51, platelet count is 401. Sodium 140, potassium 3.7, anion gap is 16, BUN 21, creatinine 0.78, glucose is 167. ASSESSMENT: 1. Acute episode of agitation and combative behavior and psychosis, resolved, questionably secondary to acute delirium and prolonged hospital setting, infectious workup negative thus far. 2. New pleural-based lung mass, measuring 4.8 cm in diameter, likely lung cancer in a patient with known tobacco abuse for many years, no metastasis evident per nuclear bone scan or CT of the abdomen and pelvis. 3. Generalized debility and weakness with frequent falls. 4. Myelofibrosis. 5. Type 2 diabetes mellitus. 6. Chronic obstructive pulmonary disease. 7. Hypertension. PLAN: The patient will be continued on her home dose of Effexor, and we will use benzodiazepines as needed. The patient is awaiting placement at alf facility at this time, as requested by family members, and then eventual plan is for assisted living. At this time, the patient wishes for no invasive testing or treatment of her presumed lung cancer. The care of this patient has been discussed with Dr. Martinez, who has seen the patient as well. We will continue current management. Further recommendations based on hospital course. Job ID: [id number] MTDD
[2018-10-03] MEDS: Enoxaparin Sodium 40 MG/0.4 ML SYRINGE SC SCH (21:07)
[2018-10-03] MEDS: ALPRAZolam 0.25 MG TAB PO PRN (21:09)
[2018-10-03] MEDS: Mirtazapine 15 MG TAB PO SCH (21:09)
[2018-10-03] MEDS: Nicotine 21 MG PATCH TD SCH (21:13)
[2018-10-04] MEDS: Hydroxyurea 500 MG CAP PO SCH (08:33)
[2018-10-04] MEDS: Venlafaxine HCl 37.5 MG TAB PO SCH (08:33)
[2018-10-04] MEDS: Famotidine 20 MG TAB PO SCH ×2 (08:33→20:39)
[2018-10-04] MEDS: Atorvastatin Calcium 20 MG TAB PO SCH (08:33)
[2018-10-04] MEDS: Atenolol 25 MG TAB PO SCH (08:33)
[2018-10-04] MEDS: Aspirin 81 mg Enteric Coated Tablet PO SCH (08:34)
[2018-10-04] MEDS: Insulin Glargine 10 UNITS in Pre-Filled Syringe 1 EACH SC SCH (08:34)
--- NOTE | 2018-10-04 10:52 | PDOC.EVN ---
Event Note - Event Note Event Note: pt seen and examined and agree with physician assistance assessment and plan. spoke with pt and daughter in details about plan. Pt is medically stable however waiting for placement per family request. pt is refusing all testing. will continue her home medications. Her restraints are off. pending placement.
[2018-10-04] MEDS: Acetaminophen 325 MG TAB PO PRN (11:20)
[2018-10-04] MEDS ORDERED: Polyethylene Glycol 3350 17 GM Packet PO PRN (11:29)
[2018-10-04] MEDS ORDERED: Bisacodyl 5 MG TAB PO PRN (11:30)
[2018-10-04] MEDS: HumaLOG 300 UNITS/3 ML VIAL SC PRN ×2 (11:32→16:16)
--- NOTE | 2018-10-04 14:48 | PRG ---
DATE OF SERVICE: 10/04/2018 SUBJECTIVE: Ms. Min is an 88-year-old female with past medical history significant for chronic ongoing tobacco abuse, myelofibrosis followed by Dr. Ag, and recently diagnosed right-sided pleural lung mass, who initially presented to the hospital with complaints of altered mental status secondary to Klonopin. The patient had an episode of combative and agitated behavior, which has now completely resolved. She is resting comfortably this morning in bed. She denies any chest pain or shortness of breath. She states that she rested well. Her complaints at this time are chronic right knee pain secondary to osteoarthritis and constipation. At this time, we are awaiting placement at [facility], which the patient understands and agrees to. OBJECTIVE: VITAL SIGNS: Blood pressure is 91/52, pulse is 78, O2 saturation is 95% on room air, respirations are 16. GENERAL: The patient is an elderly female, resting comfortably in bed. No acute distress. CV: S1 and S2. Regular rate and rhythm. Harsh systolic murmur consistent with aortic stenosis, grade 3/6. LUNGS: Regular respiratory rate and pattern, overall clear with occasional expiratory wheeze noted anteriorly. ABDOMEN: Soft. Positive bowel sounds. Nontender. EXTREMITIES: No edema. +2 DP pulses bilaterally. Extremities are warm and well perfused. SKIN: Warm and dry. No rashes or discolorations. LABORATORY DATA: No new laboratory data today. Urinalysis yesterday revealed no evidence of UTI or infection. ASSESSMENT: 1. Generalized weakness and debility with frequent falls secondary to chronic illness. 2. New pleural-based lung mass, measuring 4.8-cm in diameter, likely lung cancer. The patient has known tobacco abuse for many years, no metastasis per nuclear bone scan or CT of the abdomen and pelvis. This has been reviewed by Dr. gA as well. 3. Myelofibrosis. 4. Acute delirium, now resolved. 5. Chronic obstructive pulmonary disease. 6. Type-2 diabetes mellitus. 7. History of hypertension, now with mild hypotension. PLAN: At this time, we will continue supportive care, awaiting placement at a [facility] facility for this patient. We will add PPI for GI prophylaxis and continue her home dose of Effexor. The patient did have circumferential wall thickening of the gastric fundus on her CT scan, however, no focal mass and no evidence of intraabdominal metastasis. In any case, the patient has declined any further biopsy or invasive treatment or care for her presumed cancer. Palliative Care consult has been placed as well. The care of this patient has been discussed with Dr. Martinez, who agrees with care as outlined above. Job ID: [id number]
[2018-10-04] MEDS: Nicotine 21 MG PATCH TD SCH (20:39)
[2018-10-04] MEDS: Mirtazapine 15 MG TAB PO SCH (20:39)
[2018-10-04] MEDS: Enoxaparin Sodium 40 MG/0.4 ML SYRINGE SC SCH (20:40)
[2018-10-05] MEDS: Atorvastatin Calcium 20 MG TAB PO SCH (08:37)
[2018-10-05] MEDS: Insulin Glargine 10 UNITS in Pre-Filled Syringe 1 EACH SC SCH (08:37)
[2018-10-05] MEDS: Aspirin 81 mg Enteric Coated Tablet PO SCH (08:38)
[2018-10-05] MEDS: Famotidine 20 MG TAB PO SCH ×2 (08:38→20:37)
[2018-10-05] MEDS: Venlafaxine HCl 37.5 MG TAB PO SCH (08:40)
[2018-10-05] MEDS: ALPRAZolam 0.25 MG TAB PO PRN ×2 (08:44→18:36)
[2018-10-05] MEDS: Hydroxyurea 500 MG CAP PO SCH (08:53)
[2018-10-05] MEDS: Atenolol 25 MG TAB PO SCH (08:55)
[2018-10-05] MEDS: Acetaminophen 325 MG TAB PO PRN (12:03)
--- NOTE | 2018-10-05 14:07 | PRG ---
DATE OF SERVICE: 10/05/2018 SUBJECTIVE: Ms. Min is an 88-year-old female with past medical history significant for chronic tobacco abuse of many years, myelofibrosis, followed by Dr. Ag, and recently diagnosed right-sided pleural lung mass, who initially presented to the hospital with some complaints of confusion and altered mental status. The patient did have an episode of acute delirium, which has been resolved x48 hours at this point. She is alert and oriented, resting comfortably in bed. She continues to have a good appetite. She has no nausea or vomiting. She has no chest pain or shortness of breath. She does continue to complain of some constipation. Otherwise, no complaints. OBJECTIVE: VITAL SIGNS: Blood pressure 96/50, O2 saturation is 92% on room air, pulse 74. The patient is afebrile, 97.9. GENERAL: The patient is a thin female, resting comfortably in bed, in no acute distress. HEENT: Head is atraumatic and normocephalic. Mucous membranes are moist. NECK: Trachea is midline. No JVD. CV: S1 and S2. Harsh systolic murmur grade 3/6. Regular rhythm with occasional ectopy. LUNGS: Regular respiratory rate and pattern, overall clear with good air movement, occasional expiratory faint wheeze noted. ABDOMEN: Soft. Positive bowel sounds. Nontender. No masses. EXTREMITIES: No edema. Both lower extremities are warm and well perfused. SKIN: Warm and dry. No rashes or lesions. NEUROLOGIC: Cranial nerves 2 through 12 grossly intact. The patient is nonfocal. PSYCHIATRIC: The patient has appropriate affect and demeanor. She is alert and oriented. LABORATORY DATA: No new laboratory data today. Please refer to most recent labs drawn on October 02, 2018. ASSESSMENT: 1. Generalized weakness and debility with frequent falls at home secondary to chronic illness. Awaiting SNF placement. 2. New diagnosis of pleural-based lung mass this hospitalization, measuring 4.8 cm in diameter, likely lung cancer in the setting of chronic tobacco abuse. No metastasis per nuclear bone scan or CT of the abdomen and pelvis, which has been reviewed by Dr. Ag as well. 3. Myelofibrosis. 4. Chronic obstructive pulmonary disease. 5. Type 2 diabetes mellitus. 6. Episode of acute delirium and combative behavior this hospitalization, resolved. 7. History of hypertension, now with mild hypotension. 8. Constipation. PLAN: At this time, we will continue physical therapy and supportive care. She is awaiting placement at a [facility] facility. I will continue the patient's home doses of Effexor as well as GI and DVT prophylaxis. The patient takes atenolol for hypertension, and we will put parameters on this medication to not give if blood pressure less than 110 systolic. We will add MiraLAX along with her stool softener for constipation. The care of this patient has been discussed with Dr. Martinez who agrees with above. Job ID: [id number]
[2018-10-05] MEDS: HumaLOG 300 UNITS/3 ML VIAL SC PRN ×2 (16:23→20:42)
[2018-10-05] MEDS: Mirtazapine 15 MG TAB PO SCH (20:37)
[2018-10-05] MEDS: Enoxaparin Sodium 40 MG/0.4 ML SYRINGE SC SCH (20:37)
[2018-10-05] MEDS: Nicotine 21 MG PATCH TD SCH (20:47)
[2018-10-06] MEDS: Famotidine 20 MG TAB PO SCH (08:36)
[2018-10-06] MEDS: Venlafaxine HCl 37.5 MG TAB PO SCH (08:36)
[2018-10-06] MEDS: Hydroxyurea 500 MG CAP PO SCH (08:36)
[2018-10-06] MEDS: Atorvastatin Calcium 20 MG TAB PO SCH (08:36)
[2018-10-06] MEDS: Atenolol 25 MG TAB PO SCH (08:37)
[2018-10-06] MEDS: Aspirin 81 mg Enteric Coated Tablet PO SCH (08:37)
[2018-10-06] MEDS: Insulin Glargine 10 UNITS in Pre-Filled Syringe 1 EACH SC SCH (08:37)
[2018-10-06] MEDS: ALPRAZolam 0.25 MG TAB PO PRN (08:42)
[2018-10-06 09:05] VITALS: BP 133/63; TEMP 97.6
[2018-10-06] MEDS: HumaLOG 300 UNITS/3 ML VIAL SC PRN (11:22)
--- NOTE | 2018-10-07 10:30 | DIS ---
DATE OF ADMISSION: 10/03/2018 DATE OF DISCHARGE: 10/06/2018 DISCHARGE DIAGNOSES: As of the followin. Generalized weakness. 2. Newly diagnosed pleural base lung mass. 3. Myelofibrosis. 4. Chronic obstructive pulmonary disease. 5. Diabetes. 6. Anxiety. 7. Hypertension. 8. Constipation. HOSPITAL COURSE: The patient is an 88-year-old female with past medical history of hypertension, anxiety, and mild fibrosis, who presents to the hospital on 09/28/2018 with complaints of generalized weakness and had a mechanical fall. The patient initially was admitted in the observatory unit. She also had a recent diagnosis of new lung mass, which she was seen by Dr. Ag. The patient, however, denied any further workup for her lung mass and did not want to stop smoking. The patient initially had some metabolic encephalopathy which was attributed to multiple medications including Klonopin and trazodone. Her medications were held for 24 hours and her baseline improved and her medications were titrated down to avoid any sedation effects or change of mentation effects. The patient continued to improve throughout the hospital stay, however, was evaluated for correction facility due to generalized weakness, which was a concern of the family. The patient did have a bone scan done, which indicated just prominent arthritic changes. No evidence of osseous metastases was noted. She also had a CT of the abdomen, which indicated she had some thickening around the gastric fundus. Any kind of focal mass was not demonstrated. Possible some gastritis at this time, she was put on Pepcid. The patient has been tolerating her food without any abnormalities. She was unable to undergo a CT abdomen with contrast due to her allergy to iodine. She also was noted to have a calcified granuloma within the liver. These results were discussed with her oncologist. The patient was discharged to a correction facility. She is stable. She is tolerating her oral diet and has no complaints. MEDICATIONS: She will be discharged on; 1. Pepcid 20 mg b.i.d. 2. Dulcolax 5 mg daily p.r.n. 3. Nicotine patch 21 mg q.24 hours. 4. MiraLAX 17 g daily p.r.n. 5. Aspirin 81 mg daily. 6. Levemir 10 units subcu daily. 7. Atorvastatin 20 mg daily. 8. Hydroxyurea 500 mg daily. 9. Insulin FlexPen 10 units t.i.d. with meals. 10. Atenolol 25 mg daily. 11. Remeron 15 mg at bedtime. 12. Xanax 0.25 mg at bedtime. 13. Trazodone 50 mg at bedtime. 14. Venlafaxine 37.5 p.o. daily. Again, the patient will be discharged to correction facility. She will follow up with her primary as needed. PHYSICAL EXAMINATION: VITAL SIGNS: 97.6, 84, 18, 94% on room air, 133/66. GENERAL: She is awake, alert, and oriented x3. Does not appear in pain or distress. CV: S1, S2 present. No murmurs, rubs, or gallops. ABDOMEN: Soft and nontender. Bowel sounds are present x2. EXTREMITIES: No edema. Klonopin was discontinued, which was replaced by Xanax at bedtime and these are the medications that she has been receiving in the hospital and she has been doing just fine. Job ID: [id number]
== END 2018-10-06 15:06 | DRG 181 ==
LOC: ERS 12:32 → ONC 16:08 → OBSVTOIN 10-03 14:52
PROVIDERS: ADMIT Family Medicine; ATTEND Family Medicine
DX: C34.92 Malignant neoplasm of unspecified part of left bronchus or lung (principal); D75.81 Myelofibrosis; M19.91 Primary osteoarthritis, unspecified site; I10 Essential (primary) hypertension; Z66 Do not resuscitate; E78.5 Hyperlipidemia, unspecified; E11.9 Type 2 diabetes mellitus without complications; F17.210 Nicotine dependence, cigarettes, uncomplicated; F32.9 Major depressive disorder, single episode, unspecified; T42.4X5A Adverse effect of benzodiazepines, initial encounter; I95.9 Hypotension, unspecified; R45.1 Restlessness and agitation; R41.0 Disorientation, unspecified; K59.00 Constipation, unspecified; J44.9 Chronic obstructive pulmonary disease, unspecified; Z90.89 Acquired absence of other organs; Z90.49 Acquired absence of other specified parts of digestive tract; Z79.899 Other long term (current) drug therapy; Z79.82 Long term (current) use of aspirin; Z71.6 Tobacco abuse counseling; Z88.1 Allergy status to other antibiotic agents; Z88.2 Allergy status to sulfonamides; Z88.8 Allergy status to other drugs, medicaments and biological substances; Z88.5 Allergy status to narcotic agent
CPT/HCPCS: 36415; 36416; 70450; 71045; 71250; 74150; 78306; 80048; 80053; 80306; 80307; 81001; 81003; 82805; 83605; 84484; 85025; 85610; 85730; 87086; 93005; A4216; A9503; J1200; J1650; J1825; J2060; J3486

== ENCOUNTER 2019-02-12 13:15 | Outpatient (CLI) | payer MEDICARE ==
--- NOTE | 2019-02-12 13:53 | CT ---
CT CHEST WITHOUT CONTRAST CLINICAL INDICATION: Left lung mass. Follow-up evaluation. COMPARISON: 09/28/2018 FINDINGS: Aorta: Vascular calcifications are again seen in the thoracic aorta and involving the coronary arteri es. Lungs: Previously described mass in the posterior medial left lower lobe is again seen. The mass [place]er[place] ures 4.6 cm transverse x 3.9 cm AP. Measurements on the prior study were 4.9 cm x 3.2 cm. This mass again abuts the thoracic aorta. Chronic lung changes are again seen. Minimal focal area of groundglass density is seen at the lateral aspect of the right upper lobe. Focal area of pneumonitis cannot be entirely excluded. No pleural effusion is seen. Mediastinum: Limited evaluation due to lack of intravenous contrast. A few pretracheal lymph nodes ar e identified which are not enlarged by CT size criteria. Thyroid gland: A calcification is noted in the inferior aspect left lobe of thyroid gland. No definit josué nodule is seen on this nonenhanced CT scan exam. Osseous structures: Degenerative changes are seen in the spine, and there is prominent right convex r otoscoliosis of the thoracolumbar spine. Chest wall: No abnormality visualized. Upper abdomen: Calcified granuloma seen in the right hepatic lobe. The spleen is enlarged in AP dimen sions measuring 14 cm. IMPRESSION: 1. Persistent left lower lobe mass. 2. Minimal groundglass density in the right upper lobe not present on prior exam. Focal area of pneum onitis cannot be entirely excluded. 3. Chronic lung changes. 4. Extensive vascular calcifications. 5. Splenomegaly.
== END 2019-02-12 13:16 | disposition home or self-care (01) ==
LOC: BICCT 13:15
PROVIDERS: ATTEND Internal Medicine Hematology & Oncology
DX: R91.8 Other nonspecific abnormal finding of lung field (principal); R16.1 Splenomegaly, not elsewhere classified
CPT/HCPCS: 71250

== ENCOUNTER 2020-01-15 08:18 | Outpatient (CLI) | payer MEDICARE ==
--- NOTE | 2020-01-15 08:43 | RAD ---
EXAM: Chest 2 views: HISTORY: Lung mass and cough COMPARISON: CT chest 02/12/2019 FINDINGS: There is a normal-sized cardiomediastinal silhouette. There is a 6.8 cm posterior mass in the left ria ng. No pleural effusion is seen. Increased interstitial markings are present. Degenerative changes are seen in the spine. IMPRESSION: Left lung mass as above
== END 2020-01-15 08:19 | disposition home or self-care (01) ==
LOC: BICRAD 08:18
PROVIDERS: ATTEND Family Medicine
DX: R05 Cough (principal); R91.8 Other nonspecific abnormal finding of lung field
CPT/HCPCS: 36415; 71046; 80053; 80061; 83036; 85025

== ENCOUNTER 2021-01-13 20:30 | Inpatient (IN) | payer MEDICARE ==
[2021-01-13] MEDS ORDERED: Acetaminophen 650 MG Suppository ONE (21:17)
[2021-01-13 22:20] LABS: ALT (SGPT) 14 U/L (8-55); AST (SGOT) 16 U/L (5-34); Albumin 3.2 g/dL (3.4-4.8); Alkaline Phosphatase 106 U/L (40-110); Anion Gap 14 mmol/L (10-20); BUN (Urea Nitrogen) 36 mg/dL (9.8-20.1); Bilirubin, Total 0.7 mg/dL (0.2-1.2); Calc. Creatinine Clearance 0 mL/min (70-130); Calcium 8.6 mg/dL (7.8-10.44); Carbon Dioxide 23 mmol/L (23-31); Chloride 97 mmol/L (98-107); Globulin 2.8 g/dL (2.4-3.5); Glucose 368 mg/dL (83-110); Potassium 4.3 mmol/L (3.5-5.1); Sodium 130 mmol/L (136-145)
[2021-01-13 22:32] LABS: Band 5 % (5-11); Hemoglobin 11.3 g/dL (12.0-16.0); Lymphocytes 1 % (21-51); MDiff Complete? YES; Mean Corpuscular HGB CONC 32.1 g/dL (32.0-36.0); Mean Corpuscular Volume 96.6 fL (78.0-98.0); Mean Platelet Volume 8.8 fL (7.4-10.4); Monocytes 4 % (0-10); Neutrophil 90 % (42-75); Platelet Count 332 thou/uL (130-400); Platelet Morphology Comment Appears Adequate; RBC Distribution Width 14.9 % (11.5-14.5); RBC Morphology Normal; Red Blood Cell (RBC) Count 3.66 mill/uL (4.20-5.40); White Blood Cell (WBC) Count 14.8 thou/uL (4.8-10.8)
[2021-01-13 22:33] LABS: Bacteria/HPF None Seen HPF (None Seen); Bilirubin Negative (Negative); Blood, Urine Negative (Negative); Clarity Clear (Clear); Glucose, Urine (Dipstick) 150 mg/dL (Negative); Ketone, Urine 10 mg/dL (Negative); Leukocyte Negative Leu/uL (Negative); Nitrite Negative (Negative); Protein, Urine (Dipstick) 30 mg/dL (Neg-Trace); RBC/HPF 0-3 HPF (0-3); Specific Gravity, Urine 1.021 (1.002-1.036); Squamous Epithelial None Seen HPF (0-3); Urobilinogen Normal mg/dL (Less than 2); WBC/HPF 0-3 HPF (0-3); pH, Urine 5.5 (5.0-9.0)
[2021-01-13 22:52] LABS: SARS-CoV-2 NAA Rapid Test Not Detected (NotDetected)
[2021-01-13] MEDS ORDERED: Dexamethasone 10 MG/ML VIAL ONE (23:10)
[2021-01-14] MEDS ORDERED: Ondansetron PF 4 MG/2 ML Vial IVP PRN ×2 (02:45→09:09)
[2021-01-14] MEDS ORDERED: Sodium Chloride 0.9% 1,000 ML IV SCH ×2 (02:45→09:15)
[2021-01-14] MEDS ORDERED: Ondansetron ODT 4 MG TAB SL PRN (02:45)
[2021-01-14] MEDS ORDERED: Acetaminophen 325 MG TAB PO PRN (02:45)
[2021-01-14 04:47] VITALS: BMI 19.4
[2021-01-14] MEDS ORDERED: Sodium Chloride 0.9% 500 ML IV SCH (05:00)
[2021-01-14] MEDS ORDERED: Polyethylene Glycol 3350 17 GM Packet PO PRN (08:13)
[2021-01-14] MEDS ORDERED: Bisacodyl 5 MG TAB PO PRN (08:13)
[2021-01-14] MEDS ORDERED: Dextrose 5% in Water 1,000 ML IV PRN (08:49)
[2021-01-14] MEDS ORDERED: Dextrose 50% Abboject 50 ML SYRINGE SLOW IVP PRN (08:49)
[2021-01-14] MEDS ORDERED: Hydroxyurea 500 MG CAP PO SCH (09:00)
[2021-01-14] MEDS ORDERED: Ondansetron ODT 4 MG TAB PO PRN (09:09)
[2021-01-14 09:35] LABS: Hemoglobin 12.1 g/dL (12.0-16.0); Mean Corpuscular Volume 99.9 fL (78.0-98.0); Mean Platelet Volume 8.8 fL (7.4-10.4); Platelet Count 302 thou/uL (130-400); White Blood Cell (WBC) Count 13.9 thou/uL (4.8-10.8)
[2021-01-14 09:41] LABS: Lactic Acid 1.6 mmol/L (0.5-2.2)
[2021-01-14 09:43] LABS: Anion Gap 14 mmol/L (10-20); BUN (Urea Nitrogen) 35 mg/dL (9.8-20.1); Calc. Creatinine Clearance 39 mL/min (70-130); Carbon Dioxide 21 mmol/L (23-31); Chloride 103 mmol/L (98-107); Glucose 326 mg/dL (83-110); Potassium 4.1 mmol/L (3.5-5.1); Sodium 134 mmol/L (136-145)
[2021-01-14 09:50] LABS: Troponin I Less than 0.010 ng/mL (< 0.028)
[2021-01-14 09:54] LABS: Band 6 % (5-11); Lymphocytes 4 % (21-51); MDiff Complete? YES; Monocytes 1 % (0-10); Neutrophil 88 % (42-75); Platelet Morphology Comment Appears Adequate
[2021-01-14] MEDS ORDERED: Vancomycin 1 GM in Premix Bag 1 BAG IVPB SCH (10:23)
[2021-01-14] MEDS: Venlafaxine XR 37.5 MG CAP PO SCH (10:38)
[2021-01-14] MEDS: Aspirin 81 mg Enteric Coated Tablet PO SCH (10:38)
[2021-01-14] MEDS: Atorvastatin Calcium 20 MG TAB PO SCH (10:38)
[2021-01-14] MEDS: Famotidine 20 MG TAB PO SCH (10:39)
[2021-01-14] MEDS: Nicotine 21 MG PATCH TD SCH (10:49)
[2021-01-14] MEDS: Hydroxyurea 500 MG CAP PO SCH (10:55)
[2021-01-14 13:04] LABS: Troponin I Less than 0.010 ng/mL (< 0.028)
[2021-01-14] MEDS: HumaLOG 300 UNITS/3 ML VIAL SC PRN ×3 (13:40→20:30)
[2021-01-14] MEDS: Vancomycin HCl 750 MG in Sodium Chloride 0.9% 250 ML 250 ML IVPB SCH (13:53)
[2021-01-14] MEDS: Sodium Chloride 0.9% 1,000 ML IV SCH ×2 (15:02→23:23)
[2021-01-14] MEDS: Enoxaparin Sodium 30 MG/0.3 ML SYRINGE SC SCH ×2 (20:22→21:01)
[2021-01-14] MEDS: Mirtazapine 15 MG TAB PO SCH (20:22)
[2021-01-14] MEDS ORDERED: traZODone HCl 50 MG TAB PO SCH (21:00)
[2021-01-14] MEDS: ALPRAZolam 0.25 MG TAB PO PRN (22:47)
[2021-01-15 05:07] LABS: Anion Gap 11 mmol/L (10-20); BUN (Urea Nitrogen) 27 mg/dL (9.8-20.1); Calc. Creatinine Clearance 48 mL/min (70-130); Calcium 7.9 mg/dL (7.8-10.44); Carbon Dioxide 23 mmol/L (23-31); Chloride 106 mmol/L (98-107); Glucose 83 mg/dL (83-110); Potassium 3.6 mmol/L (3.5-5.1); Sodium 136 mmol/L (136-145)
[2021-01-15 05:08] LABS: Band 8 % (5-11); Eosinophils 7 % (0-10); Hemoglobin 11.2 g/dL (12.0-16.0); Lymphocytes 5 % (21-51); MDiff Complete? YES; Mean Corpuscular HGB CONC 31.1 g/dL (32.0-36.0); Mean Corpuscular Hemoglobin 30.9 pg (27.0-31.0); Mean Corpuscular Volume 99.3 fL (78.0-98.0); Mean Platelet Volume 8.3 fL (7.4-10.4); Monocytes 5 % (0-10); Neutrophil 75 % (42-75); Platelet Count 385 thou/uL (130-400); Platelet Morphology Comment Appears Adequate; RBC Distribution Width 15.1 % (11.5-14.5); Red Blood Cell (RBC) Count 3.61 mill/uL (4.20-5.40); White Blood Cell (WBC) Count 12.6 thou/uL (4.8-10.8)
[2021-01-15] MEDS: Venlafaxine XR 37.5 MG CAP PO SCH (08:23)
[2021-01-15] MEDS: Famotidine 20 MG TAB PO SCH (08:24)
[2021-01-15] MEDS: Atorvastatin Calcium 20 MG TAB PO SCH (08:24)
[2021-01-15] MEDS: Hydroxyurea 500 MG CAP PO SCH (08:24)
[2021-01-15] MEDS: Aspirin 81 mg Enteric Coated Tablet PO SCH (08:25)
[2021-01-15] MEDS: Nicotine 21 MG PATCH TD SCH (08:25)
[2021-01-15] MEDS: lamoTRIgine 25 MG TAB PO SCH (08:31)
[2021-01-15] MEDS: Vancomycin HCl 750 MG in Sodium Chloride 0.9% 250 ML 250 ML IVPB SCH (12:54)
[2021-01-15] MEDS: Mirtazapine 15 MG TAB PO SCH (21:53)
[2021-01-15] MEDS: Enoxaparin Sodium 30 MG/0.3 ML SYRINGE SC SCH (21:54)
[2021-01-16] MEDS: Famotidine 20 MG TAB PO SCH (08:23)
[2021-01-16] MEDS: Aspirin 81 mg Enteric Coated Tablet PO SCH (08:23)
[2021-01-16] MEDS: Hydroxyurea 500 MG CAP PO SCH (08:23)
[2021-01-16] MEDS: Atorvastatin Calcium 20 MG TAB PO SCH (08:24)
[2021-01-16] MEDS: Venlafaxine XR 37.5 MG CAP PO SCH (08:24)
[2021-01-16] MEDS: Nicotine 21 MG PATCH TD SCH (08:24)
[2021-01-16] MEDS: lamoTRIgine 25 MG TAB PO SCH (08:30)
[2021-01-16 10:42] LABS: Anion Gap 11 mmol/L (10-20); BUN (Urea Nitrogen) 12 mg/dL (9.8-20.1); Calc. Creatinine Clearance 53 mL/min (70-130); Calcium 8.3 mg/dL (7.8-10.44); Carbon Dioxide 25 mmol/L (23-31); Chloride 105 mmol/L (98-107); Glucose 139 mg/dL (83-110); Potassium 3.3 mmol/L (3.5-5.1); Sodium 138 mmol/L (136-145)
[2021-01-16 10:43] LABS: Hemoglobin 11.8 g/dL (12.0-16.0); Mean Corpuscular HGB CONC 31.6 g/dL (32.0-36.0); Mean Corpuscular Hemoglobin 31.1 pg (27.0-31.0); Mean Corpuscular Volume 98.5 fL (78.0-98.0); Platelet Count 469 thou/uL (130-400); RBC Distribution Width 15.1 % (11.5-14.5); Red Blood Cell (RBC) Count 3.79 mill/uL (4.20-5.40); White Blood Cell (WBC) Count 14.2 thou/uL (4.8-10.8)
[2021-01-16 11:21] LABS: Anisocytosis SLIGHT = 6-15 cells (100X) (0-5/hpf); Band 6 % (5-11); Eosinophils 8 % (0-10); Hypersemented Neutrophil SLIGHT; Lymphocytes 2 % (21-51); MDiff Complete? YES; Metamyelocyte 1 % (0-0); Monocytes 5 % (0-10); Neutrophil 78 % (42-75); Ovalocytes SLIGHT = 2-5 cells (100X) (0-1/hpf); Platelet Morphology Comment Appears Increased; Vacuoles SLIGHT
[2021-01-16] MEDS: Nicotine 7 MG PATCH TD SCH (12:20)
[2021-01-16] MEDS: Vancomycin 1 GM in Premix Bag 1 BAG IVPB SCH (19:12)
[2021-01-16] MEDS: Atenolol 25 MG TAB PO SCH (20:25)
[2021-01-16] MEDS: Melatonin 3 MG TAB PO PRN (20:26)
[2021-01-16] MEDS: ALPRAZolam 0.25 MG TAB PO PRN (20:26)
[2021-01-16] MEDS: Mirtazapine 15 MG TAB PO SCH (20:31)
[2021-01-16] MEDS: Enoxaparin Sodium 30 MG/0.3 ML SYRINGE SC SCH (20:32)
[2021-01-17 07:23] LABS: Hemoglobin 13.1 g/dL (12.0-16.0); Mean Corpuscular HGB CONC 30.2 g/dL (32.0-36.0); Mean Corpuscular Volume 99.3 fL (78.0-98.0); Mean Platelet Volume 7.9 fL (7.4-10.4); Platelet Count 515 thou/uL (130-400); RBC Distribution Width 15.3 % (11.5-14.5); Red Blood Cell (RBC) Count 4.36 mill/uL (4.20-5.40); White Blood Cell (WBC) Count 13.2 thou/uL (4.8-10.8)
[2021-01-17 07:32] LABS: Anion Gap 9 mmol/L (10-20); BUN (Urea Nitrogen) 9 mg/dL (9.8-20.1); Calc. Creatinine Clearance 49 mL/min (70-130); Calcium 8.7 mg/dL (7.8-10.44); Carbon Dioxide 30 mmol/L (23-31); Chloride 104 mmol/L (98-107); Glucose 168 mg/dL (83-110); Potassium 3.6 mmol/L (3.5-5.1); Sodium 139 mmol/L (136-145)
[2021-01-17 07:48] LABS: Band 10 % (5-11); Eosinophils 8 % (0-10); Lymphocytes 7 % (21-51); MDiff Complete? YES; Monocytes 2 % (0-10); Neutrophil 73 % (42-75); Platelet Morphology Comment Appears Increased; RBC Morphology Normal
[2021-01-17] MEDS: Famotidine 20 MG TAB PO SCH (09:18)
[2021-01-17] MEDS: Venlafaxine XR 37.5 MG CAP PO SCH (09:18)
[2021-01-17] MEDS: Atorvastatin Calcium 20 MG TAB PO SCH (09:18)
[2021-01-17] MEDS: Aspirin 81 mg Enteric Coated Tablet PO SCH (09:19)
[2021-01-17] MEDS: Hydroxyurea 500 MG CAP PO SCH (09:19)
[2021-01-17] MEDS: lamoTRIgine 25 MG TAB PO SCH (09:20)
[2021-01-17] MEDS: Nicotine 21 MG PATCH TD SCH (09:21)
[2021-01-17] MEDS: Nicotine 7 MG PATCH TD SCH (13:17)
[2021-01-17] MEDS: HumaLOG 300 UNITS/3 ML VIAL SC PRN ×2 (13:24→21:02)
[2021-01-17 16:49] LABS: Vancomycin, Trough 4.8 ug/mL
[2021-01-17] MEDS: Vancomycin 1 GM in Premix Bag 1 BAG IVPB SCH (18:30)
[2021-01-17] MEDS: Mirtazapine 15 MG TAB PO SCH (20:05)
[2021-01-17] MEDS: ALPRAZolam 0.25 MG TAB PO PRN (20:06)
[2021-01-17] MEDS: Enoxaparin Sodium 30 MG/0.3 ML SYRINGE SC SCH (20:06)
[2021-01-17] MEDS: Melatonin 3 MG TAB PO PRN (20:06)
[2021-01-17] MEDS: Atenolol 25 MG TAB PO SCH (20:07)
[2021-01-18 04:22] LABS: Anion Gap 12 mmol/L (10-20); BUN (Urea Nitrogen) 8 mg/dL (9.8-20.1); Calc. Creatinine Clearance 49 mL/min (70-130); Calcium 8.5 mg/dL (7.8-10.44); Carbon Dioxide 25 mmol/L (23-31); Chloride 101 mmol/L (98-107); Glucose 133 mg/dL (83-110); Potassium 4.1 mmol/L (3.5-5.1); Sodium 134 mmol/L (136-145)
[2021-01-18 05:10] LABS: Hemoglobin 12.2 g/dL (12.0-16.0); Mean Corpuscular HGB CONC 31.1 g/dL (32.0-36.0); Mean Corpuscular Hemoglobin 31.1 pg (27.0-31.0); Platelet Count 474 thou/uL (130-400); RBC Distribution Width 15.2 % (11.5-14.5); Red Blood Cell (RBC) Count 3.91 mill/uL (4.20-5.40); White Blood Cell (WBC) Count 12.1 thou/uL (4.8-10.8)
[2021-01-18 05:11] LABS: Band 2 % (5-11); Eosinophils 3 % (0-10); Hypochromia SLIGHT = 6-15 cells (100X) (0-5/hpf); Lymphocytes 4 % (21-51); MDiff Complete? YES; Macrocytosis SLIGHT = 6-15 cells (100X) (0-5/hpf); Monocytes 5 % (0-10); Neutrophil 84 % (42-75); Platelet Morphology Comment Appears Increased; Reactive Lymphocytes 1 % (0-10)
[2021-01-18 07:36] LABS: Vancomycin, Random 11.9 ug/mL (See Comment)
[2021-01-18] MEDS: Atorvastatin Calcium 20 MG TAB PO SCH (08:03)
[2021-01-18] MEDS: Nicotine 21 MG PATCH TD SCH (08:03)
[2021-01-18] MEDS: Hydroxyurea 500 MG CAP PO SCH (08:03)
[2021-01-18] MEDS: Venlafaxine XR 37.5 MG CAP PO SCH (08:03)
[2021-01-18] MEDS: Famotidine 20 MG TAB PO SCH (08:04)
[2021-01-18] MEDS: Aspirin 81 mg Enteric Coated Tablet PO SCH (08:04)
[2021-01-18] MEDS: lamoTRIgine 25 MG TAB PO SCH (08:06)
[2021-01-18] MEDS: Nicotine 7 MG PATCH TD SCH (11:26)
[2021-01-18] MEDS: HumaLOG 300 UNITS/3 ML VIAL SC PRN ×2 (11:34→17:25)
[2021-01-18 17:54] LABS: Vancomycin, Trough 6.4 ug/mL
[2021-01-18] MEDS ORDERED: Vancomycin 1 GM in Premix Bag 1 BAG IVPB SCH (18:00)
[2021-01-18] MEDS: ALPRAZolam 0.25 MG TAB PO PRN (18:25)
[2021-01-18] MEDS: Atenolol 25 MG TAB PO SCH (19:52)
[2021-01-18] MEDS: Enoxaparin Sodium 30 MG/0.3 ML SYRINGE SC SCH (19:54)
[2021-01-18] MEDS: Melatonin 3 MG TAB PO PRN (19:55)
[2021-01-18] MEDS: Mirtazapine 15 MG TAB PO SCH (19:55)
[2021-01-19] MEDS: HumaLOG 300 UNITS/3 ML VIAL SC PRN ×3 (05:51→16:40)
[2021-01-19] MEDS: Hydroxyurea 500 MG CAP PO SCH (08:58)
[2021-01-19] MEDS: lamoTRIgine 25 MG TAB PO SCH (08:58)
[2021-01-19] MEDS: Venlafaxine XR 37.5 MG CAP PO SCH (08:59)
[2021-01-19] MEDS: Aspirin 81 mg Enteric Coated Tablet PO SCH (09:01)
[2021-01-19] MEDS: Atorvastatin Calcium 20 MG TAB PO SCH (09:01)
[2021-01-19] MEDS: Nicotine 21 MG PATCH TD SCH (09:01)
[2021-01-19] MEDS: Famotidine 20 MG TAB PO SCH (09:01)
[2021-01-19 09:21] LABS: Hemoglobin 12.8 g/dL (12.0-16.0); Mean Corpuscular HGB CONC 31.6 g/dL (32.0-36.0); Mean Corpuscular Hemoglobin 31.5 pg (27.0-31.0); Mean Corpuscular Volume 99.8 fL (78.0-98.0); Mean Platelet Volume 8.2 fL (7.4-10.4); Platelet Count 619 thou/uL (130-400); RBC Distribution Width 15.7 % (11.5-14.5); Red Blood Cell (RBC) Count 4.05 mill/uL (4.20-5.40)
[2021-01-19 09:24] LABS: Anion Gap 10 mmol/L (10-20); BUN (Urea Nitrogen) 11 mg/dL (9.8-20.1); Calc. Creatinine Clearance 52 mL/min (70-130); Calcium 8.6 mg/dL (7.8-10.44); Carbon Dioxide 28 mmol/L (23-31); Chloride 99 mmol/L (98-107); Glucose 147 mg/dL (83-110); Potassium 3.2 mmol/L (3.5-5.1); Sodium 134 mmol/L (136-145)
[2021-01-19 09:39] LABS: Band 11 % (5-11); Eosinophils 5 % (0-10); Lymphocytes 7 % (21-51); MDiff Complete? YES; Monocytes 4 % (0-10); Neutrophil 72 % (42-75); Platelet Morphology Comment Appears Increased; RBC Morphology Normal; Reactive Lymphocytes 1 % (0-10)
[2021-01-19] MEDS: Nicotine 7 MG PATCH TD SCH (12:01)
[2021-01-19] MEDS ORDERED: VANCOMYCIN 1.25 GM/250 ML BAG 1.25 GM in Premix Bag 1 BAG IVPB SCH (13:00)
[2021-01-19] MEDS: metFORMIN 500 MG TAB PO SCH (16:39)
[2021-01-19] MEDS: Mirtazapine 15 MG TAB PO SCH (19:51)
[2021-01-19] MEDS: Ciprofloxacin 500 MG TAB PO SCH (19:51)
[2021-01-19] MEDS: ALPRAZolam 0.25 MG TAB PO PRN (19:52)
[2021-01-19] MEDS: Melatonin 3 MG TAB PO PRN (19:52)
[2021-01-19] MEDS: Enoxaparin Sodium 30 MG/0.3 ML SYRINGE SC SCH (19:52)
[2021-01-19] MEDS: Atenolol 25 MG TAB PO SCH (19:55)
[2021-01-20 04:10] LABS: #Basophils 0.1 thou/uL (0.0-0.2); #Eosinphils 0.7 thou/uL (0.0-0.7); #Lymphocytes 0.5 thou/uL (1.20-3.40); #Monocytes 0.6 thou/uL (0.11-0.59); %Basophils 0.8 % (0.0-1.0); %Eosinophils 5.3 % (0.0-10.0); %Lymphocytes 3.7 % (21.0-51.0); %Monocytes 4.1 % (0.0-10.0); %Neutrophils 86.1 % (42.0-75.0); Hemoglobin 11.9 g/dL (12.0-16.0); Mean Corpuscular HGB CONC 30.6 g/dL (32.0-36.0); Mean Corpuscular Hemoglobin 30.6 pg (27.0-31.0); Platelet Count 626 thou/uL (130-400); RBC Distribution Width 15.5 % (11.5-14.5); Red Blood Cell (RBC) Count 3.88 mill/uL (4.20-5.40); White Blood Cell (WBC) Count 13.9 thou/uL (4.8-10.8)
[2021-01-20 04:29] LABS: Anion Gap 11 mmol/L (10-20); BUN (Urea Nitrogen) 12 mg/dL (9.8-20.1); Calc. Creatinine Clearance 49 mL/min (70-130); Calcium 8.5 mg/dL (7.8-10.44); Carbon Dioxide 27 mmol/L (23-31); Chloride 100 mmol/L (98-107); Glucose 265 mg/dL (83-110); Potassium 3.3 mmol/L (3.5-5.1); Sodium 135 mmol/L (136-145)
[2021-01-20] MEDS: Ciprofloxacin 500 MG TAB PO SCH (06:02)
[2021-01-20] MEDS: HumaLOG 300 UNITS/3 ML VIAL SC PRN (06:30)
[2021-01-20 07:07] VITALS: BP 128/62; TEMP 98
[2021-01-20] MEDS: metFORMIN 500 MG TAB PO SCH (08:24)
[2021-01-20] MEDS: Atorvastatin Calcium 20 MG TAB PO SCH (08:24)
[2021-01-20] MEDS: Venlafaxine XR 37.5 MG CAP PO SCH (08:25)
[2021-01-20] MEDS: Nicotine 21 MG PATCH TD SCH (08:26)
[2021-01-20] MEDS: lamoTRIgine 25 MG TAB PO SCH (08:26)
[2021-01-20] MEDS: Aspirin 81 mg Enteric Coated Tablet PO SCH (08:26)
[2021-01-20] MEDS: Hydroxyurea 500 MG CAP PO SCH (08:26)
[2021-01-20] MEDS: Famotidine 20 MG TAB PO SCH (08:26)
[2021-01-20] MEDS ORDERED: Potassium Chloride 20 MEQ TAB PO SCH (09:15)
== END 2021-01-20 11:17 | disposition hospice, inpatient (51) | DRG 871 ==
LOC: ERS 20:30 → ONC 01-14 00:30
PROVIDERS: ADMIT Student in an Organized Health Care Education/Training Program; ATTEND Internal Medicine
DX: A41.2 Sepsis due to unspecified staphylococcus (principal); J18.9 Pneumonia, unspecified organism; I50.33 Acute on chronic diastolic (congestive) heart failure; Z66 Do not resuscitate; Z20.822 Contact with and (suspected) exposure to COVID-19; Z51.5 Encounter for palliative care; F05 Delirium due to known physiological condition; G61.0 Guillain-Barre syndrome; F33.9 Major depressive disorder, recurrent, unspecified; J44.0 Chronic obstructive pulmonary disease with (acute) lower respiratory infection; I13.0 Hypertensive heart and chronic kidney disease with heart failure and stage 1 through stage 4 chronic kidney disease, or unspecified chronic kidney disease; E87.1 Hypo-osmolality and hyponatremia; F03.90 Unspecified dementia, unspecified severity, without behavioral disturbance, psychotic disturbance, mood disturbance, and anxiety; D46.9 Myelodysplastic syndrome, unspecified; E78.5 Hyperlipidemia, unspecified; E78.00 Pure hypercholesterolemia, unspecified; F17.210 Nicotine dependence, cigarettes, uncomplicated; F41.9 Anxiety disorder, unspecified; N18.30 Chronic kidney disease, stage 3 unspecified; E11.22 Type 2 diabetes mellitus with diabetic chronic kidney disease; R65.20 Severe sepsis without septic shock; I08.3 Combined rheumatic disorders of mitral, aortic and tricuspid valves; F22 Delusional disorders; G47.00 Insomnia, unspecified; Z90.49 Acquired absence of other specified parts of digestive tract; Z90.89 Acquired absence of other organs; Z85.118 Personal history of other malignant neoplasm of bronchus and lung; Z88.5 Allergy status to narcotic agent; Z88.0 Allergy status to penicillin; Z88.2 Allergy status to sulfonamides; Z88.8 Allergy status to other drugs, medicaments and biological substances; Z88.1 Allergy status to other antibiotic agents; Z91.041 Radiographic dye allergy status; Z79.899 Other long term (current) drug therapy; Z79.82 Long term (current) use of aspirin; Z79.84 Long term (current) use of oral hypoglycemic drugs
CPT/HCPCS: 0240U; 36415; 36416; 51701; 71045; 80048; 80053; 80202; 81003; 81015; 83605; 83880; 84145; 84484; 85025; 87040; 87086; 93005; 93010; 93306; 96374; J1100; J1650; J1815; J1956; J3370; J7050

== ENCOUNTER 2021-02-24 12:44 | Outpatient (CLI) | payer MEDICARE | END 2021-02-24 12:45 | disposition home or self-care (01) | LOC: RAD 12:44 | PROVIDERS: ATTEND Nurse Practitioner Family | DX: R41.82 Altered mental status, unspecified (principal); J32.0 Chronic maxillary sinusitis | CPT/HCPCS: 70450 ==